=== PATIENT | female | born 1930 | race Caucasian/White ===

== ENCOUNTER 2016-09-23 18:05 | Observation (INO) | payer MEDICARE ==
[2016-09-23] VITALS (7 sets, daily range): BP systolic 134–154; BP diastolic 67–89; PULSE 68–88; RESP 18–20; TEMP 97.4–98.4; O2SAT 95–98
[~2016-09-23] VITALS: Ht 157.5 cm; Wt 81.2 kg
[~2016-09-23 18:05] MED LIST: ASPI1TAB91 PO; CARV3.125 PO; COUM5TAB PO; ENAL2.5T40 PO; LANO0.1212 PO; LEVO100T5 PO; OXYC1TAB63 PO; PANT40TA3 PO; ZOCO40TA PO
--- NOTE | 2016-09-23 18:25 | PD ---
HPI Chief Complaint: Edema Time Seen by Provider: 18:18 Travel History International Travel<30 days: No Contact w/Intl Traveler<30days: No Traveled to known affect area: No History of Present Illness HPI 86-year-old female with history of CAD, CABG, pacemaker, on Coumadin, here for evaluation of left leg swelling. The patient reports that she had some pain in her left thigh about 10 days ago and reports having an ultrasound of the lower extremity which was negative for DVT. Her last 2 days she has been having increasing swelling to the extremity. She denies history of DVT or PE. She denies pain in left lower extremity. No trauma. She did have venous harvesting from her bilateral lower extremities for her CABG 7 years ago. No other surgeries to the left lower extremity. PFSH Past Medical History Arthritis: Yes Cancer: Yes (COLON 1983) Cardiovascular Problems: Yes (CAD,CHF, PACEMAKER,CABG) High Cholesterol: Yes Chest Pain: No Congestive Heart Failure: Yes Cerebrovascular Accident: No Diabetes: Yes Endocrine: Yes Gastrointestinal Disorders: Yes (ULCERS,REFLUX) Glaucoma: No Genitourinary: No Hepatitis: No Hiatal Hernia: Yes Hypertension: Yes Immune Disorder: No Musculoskeletal: Yes (ARTHRITIS, LUMBAR PAIN) Neurologic: Yes (NEUROPATHY IN FEET, HANDS) Psychiatric: No Reproductive: No Respiratory: No Immunizations Current: Yes Migraines: No Seizures: No Thyroid Disease: Yes ?: Not Past Surgical History Abdominal Surgery: Yes (COLON RESECTION, CHOLY, APPY) AICD: Yes ([facility]) Body Medical Devices: STERNAL WIRES Cardiac Surgery: Yes (CABGX3 2007, PACEMAKER, ARRYTHMIA) Ear Surgery: No Endocrine Surgery: No Eye Surgery: No Genitourinary Surgery: No Gynecologic Surgery: Yes (TOTAL HYSTERECTOMY (IN 2 SURGERIES)) Joint Replacement: No Neurologic Surgery: No Oral Surgery: Yes (TONSILLECTOMY) Pacemaker: Yes Thoracic Surgery: Yes Other Surgery: Yes (hysterectomy, cholecystectomy, colon surgery) Social History Alcohol Use: No Tobacco Use: No Substance Use: No Allergies-Medications (Allergen,Severity, Reaction): Coded Allergies: Amiodarone (Verified Allergy, Intermediate, Rash, 09/23/16) Reported Meds & Prescriptions Reported Meds & Active Scripts Active Oxycodone-Acetaminophen 5-325 mg Tab 1 Tab PO Q4H PRN Reported Coumadin (Warfarin) 5 Mg Tab 5 Mg PO DAILY Zocor (Simvastatin) 40 Mg Tab 40 Mg PO HS Levothyroxine (Levothyroxine Sodium) 100 Mcg Tab 100 Mcg PO DAILY Vasotec (Enalapril Maleate) 2.5 Mg Tab 2.5 Mg PO DAILY Lanoxin (Digoxin) 0.125 Mg Tab 0.125 Mg PO DAILY Aspirin Adult Low Strength (Aspirin) 81 Mg Tabdr 81 Mg PO DAILY Pantoprazole (Pantoprazole Sodium) 40 Mg Tab 40 Mg PO DAILY Coreg (Carvedilol) 3.125 Mg Tab 3.125 Mg PO DAILY Review of Systems Except as stated in HPI: all other systems reviewed are Neg Physical Exam Narrative GENERAL: Well-developed, well-nourished, comfortable, no acute distress. SKIN: Warm and dry. No rash. No erythema. HEAD: Atraumatic. Normocephalic. EYES: Pupils equal and round. No scleral icterus. No injection or drainage. ENT: Mucous membranes pink and moist. NECK: Trachea midline. No JVD. CARDIOVASCULAR: Regular rate and rhythm. Bilateral dorsalis pedis pulses are brisk and equal. RESPIRATORY: No accessory muscle use. Clear to auscultation. Breath sounds equal bilaterally. GASTROINTESTINAL: Abdomen soft, non-tender, nondistended. 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 MUSCULOSKELETAL: No obvious deformities. No clubbing. No cyanosis. Significant left lower extremity edema from foot to thigh. No tenderness to left lower extremity. All compartments are supple in the left lower extremity. NEUROLOGICAL: Awake and alert. No obvious cranial nerve deficits. Motor grossly within normal limits. Normal speech. PSYCHIATRIC: Appropriate mood and affect; insight and judgment normal. Data Data Last Documented VS Vital Signs Date Time Temp Pulse Resp B/P Pulse Ox O2 Delivery O2 Flow Rate FiO2 09/23/16 18:30 95 09/23/16 18:15 98.4 71 20 134/67 Orders Complete Blood Count With Diff (09/23/16 18:23) Basic Metabolic Panel (Bmp) (09/23/16 18:23) B-Type Natriuretic Peptide (09/23/16 18:23) Act Partial Throm Time (Ptt) (09/23/16 18:23) Prothrombin Time / Inr (Pt) (09/23/16 18:23) Iv Access Insert/Monitor (09/23/16 18:23) Ecg Monitoring (09/23/16 18:23) Oximetry (09/23/16 18:23) Oxygen Administration (09/23/16 18:23) Chest, Single Ap (09/23/16 18:23) Sodium Chloride 0.9% Flush (Ns Flush) (09/23/16 18:30) Us Leg Venous Doppler (09/23/16 ) Enoxaparin Inj (Lovenox Inj) (09/23/16 20:00) Labs Laboratory Tests Test 09/23/16 18:30 White Blood Count 8.6 TH/MM3 Red Blood Count 4.40 MIL/MM3 Hemoglobin 11.9 GM/DL Hematocrit 36.7 % Mean Corpuscular Volume 83.4 FL Mean Corpuscular Hemoglobin 27.1 PG Mean Corpuscular Hemoglobin 32.5 % Concent Red Cell Distribution Width 14.7 % Platelet Count 256 TH/MM3 Mean Platelet Volume 6.9 FL Neutrophils (%) (Auto) 76.9 % Lymphocytes (%) (Auto) 8.5 % Monocytes (%) (Auto) 9.4 % Eosinophils (%) (Auto) 4.9 % Basophils (%) (Auto) 0.3 % Neutrophils # (Auto) 6.7 TH/MM3 Lymphocytes # (Auto) 0.7 TH/MM3 Monocytes # (Auto) 0.8 TH/MM3 Eosinophils # (Auto) 0.4 TH/MM3 Basophils # (Auto) 0.0 TH/MM3 CBC Comment DIFF FINAL Differential Comment Prothrombin Time 14.5 SEC Prothromb Time International 1.3 RATIO Ratio Activated Partial 31.4 SEC Thromboplast Time Sodium Level 136 MEQ/L Potassium Level 4.0 MEQ/L Chloride Level 98 MEQ/L Carbon Dioxide Level 27.2 MEQ/L Anion Gap 11 MEQ/L Blood Urea Nitrogen 18 MG/DL Creatinine 0.88 MG/DL Estimat Glomerular Filtration 61 ML/MIN Rate Random Glucose 120 MG/DL Calcium Level 9.7 MG/DL B-Type Natriuretic Peptide 427 PG/ML MDM Medical Decision Making Medical Screen Exam Complete: Yes Emergency Medical Condition: Yes Differential Diagnosis DVT, venous insufficiency, lymphedema, fluid overload Narrative Course Vital signs show heart rate 71, blood pressure 134/67, pulse ox 95% on room air , oral temp of 98.4F. CBC shows to be BC 8.6, hemoglobin 11.9, hematocrit 36.7, platelets 256, neutrophils 77%. BMP is unremarkable. BNP is 427. INR is 1.3. Chest x-ray: Cardiomegaly with previous CABG. Minimal right basilar density could be atelectasis or infiltrate. Left lower extremity ultrasound: Occlusive DVT of the left lower extremity. Patient was made aware of all findings. She is requesting something for her chronic pain which she states is diffuse. She takes oxycodone at home and tells me that hydrocodone will not work for her. I will give her some morphine. The patient is elderly and lives alone. She has significant left lower extremity edema when compared to the right. There are no signs of phlegmasia cerulea dolens or phlegmasia albicans. Bilateral dorsalis pedis pulses are palpable and brisk. She is having difficulty ambulating because of the significant size for left lower extremity and having difficulty bending her knee because of the edema. Because of this she'll be admitted for further treatment and evaluation and likely interventional radiology consultation for possible thrombolysis. Case discussed with [facility] hospitalist Dr. Ramirez who will admit the patient to her service. The patient will be started on Lovenox. Diagnosis Primary Impression: Deep vein thrombosis (DVT) of left lower extremity Qualified Code: I82.402 - Acute deep vein thrombosis (DVT) of left lower extremity, unspecified vein Admitting Information Admitting Physician Requests: Ag Fish MD Sep 23, 2016 18:25
[2016-09-23] MEDS ORDERED: SODIUM CHLORIDE 0.9% FLUSH 5 ML FLUSH IVF PRN (18:30)
[2016-09-23 18:42] LABS: AUTOMATED NEUTROPHIL # 6.7 TH/MM3 (1.8-7.7); BASOPHIL % 0.3 % (0.0-2.0); EOSINOPHIL # 0.4 TH/MM3 (0-0.4); EOSINOPHIL % 4.9 % (0.0-4.0); HEMATOCRIT 36.7 % (35.0-46.0); HEMO FLAGS DIFF FINAL; LYMPH % 8.5 % (9.0-44.0); LYMPHOCYTE # 0.7 TH/MM3 (1.0-4.8); MEAN CELL VOLUME 83.4 FL (80.0-100.0); MEAN CORPUSCULAR HEMOGLOBIN 27.1 PG (27.0-34.0); MEAN CORPUSCULAR HGB CONC 32.5 % (32.0-36.0); MONO % 9.4 % (0.0-8.0); NEUT % 76.9 % (16.0-70.0); PLATELET COUNT 256 TH/MM3 (150-450); RED CELL DISTRIBUTION WIDTH 14.7 % (11.6-17.2); WHITE BLOOD COUNT 8.6 TH/MM3 (4.0-11.0)
--- NOTE | 2016-09-23 18:44 | RADHPO ---
EXAM DATE/TIME: 09/23/2016 18:28 [facility] COMPARISON: CHEST PA & LAT, June 17, 2015, 11:55. INDICATIONS : Chest discomfort, swelling in lower extremities for 1 week MEDICAL HISTORY : None. SURGICAL HISTORY : Pacemaker. CABG. ENCOUNTER: Initial ACUITY: 1 week PAIN SCORE: 0/10 LOCATION: Bilateral chest FINDINGS: A single view of the chest demonstrates cardiomegaly with previous median sternotomy. Right basilar d ensity. Left-sided defibrillator with intact leads.. The cardiomediastinal contours are unremarkable . Osseous structures are intact. CONCLUSION: 1. Cardiomegaly with previous CABG. 2. Minimal right basilar density could be atelectasis or infiltrate. Eber Grant MD on September 23, 2016 at 18:42 Board Certified Radiologist. This report was verified electronically.
[2016-09-23 18:53] LABS: APTT (PATIENT) 31.4 SEC (24.3-30.1); BICARBONATE 27.2 MEQ/L (21.0-32.0); INTERNATIONAL NORMALIZED RATIO 1.3 RATIO; PROTHROMBIN TIME - PATIENT 14.5 SEC (9.8-11.6)
--- NOTE | 2016-09-23 19:25 | RADHPO ---
EXAM DATE/TIME: 09/23/2016 18:53 [facility] COMPARISON: No previous studies available for comparison. INDICATIONS : Left leg pain and swelling. MEDICAL HISTORY : Hypercholesterolemia. Gastroesophageal reflux disease. Hypertension. Hypothyroidism. CHF. Ulcer. H iatal hernia. Arthritis. SURGICAL HISTORY : Tonsillectomy. Appendectomy. Cholecystectomy. Colon resection. CABG. Pacemaker. Hysterectomy. ENCOUNTER: Initial ACUITY: 3 days PAIN SCORE: 5/10 LOCATION: Left leg. TECHNIQUE: Venous ultrasound of the leg was performed from the inguinal ligament to the proximal calf. Real-hugo e, color Doppler and spectral tracing, compression and augmentation techniques were used. FINDINGS: There is nonocclusive thrombus in the common femoral vein extending into the popliteal vein. Occlusiv e thrombus in the left peroneal and posterior tibial veins. CONCLUSION: 1. Occlusive thrombus in the left leg. Eber Grant MD on September 23, 2016 at 19:23 Board Certified Radiologist. This report was verified electronically.
[2016-09-23] MEDS ORDERED: ENOXAPARIN SODIUM 80 MG/0.8 ML SYRINGE SQ ONE (20:00)
[2016-09-23] MEDS ORDERED: WARFARIN SOD 10 MG TAB PO ONE (20:15)
[2016-09-23] MEDS ORDERED: MORPHINE SULFATE 4 MG/ML INJ IV PUSH ONE (20:15)
[2016-09-23] MEDS ORDERED: ONDANSETRON HCL 4 MG/2 ML VIAL IVP PRN (22:45)
[2016-09-23] MEDS ORDERED: ZOLPIDEM TARTRATE 5 MG TAB PO PRN (22:45)
[2016-09-23] MEDS ORDERED: NALOXONE HCL 0.4 MG/ML AMP IV PRN (22:45)
[2016-09-23] MEDS ORDERED: SODIUM CHLORIDE 0.9% FLUSH 5 ML FLUSH FLUSH PRN (22:45)
[2016-09-23] MEDS ORDERED: DO NOT ADM ANY ANTICOAGULANT DRUGS XX PRN (23:00)
[2016-09-24] MEDS: oxyCODONE/ACETAMINOPHEN 5 MG/325 MG TAB PO PRN ×3 (00:09→20:01)
[2016-09-24 03:30] VITALS: BP 140/68; PULSE 74; RESP 18; TEMP 98; O2SAT 98
[2016-09-24 06:15] LABS: AUTOMATED NEUTROPHIL # 4.1 TH/MM3 (1.8-7.7); BASOPHIL % 0.6 % (0.0-2.0); EOSINOPHIL # 0.5 TH/MM3 (0-0.4); EOSINOPHIL % 7.8 % (0.0-4.0); HEMATOCRIT 31.6 % (35.0-46.0); HEMO FLAGS DIFF FINAL; LYMPH % 12.3 % (9.0-44.0); LYMPHOCYTE # 0.7 TH/MM3 (1.0-4.8); MEAN CELL VOLUME 83.2 FL (80.0-100.0); MEAN CORPUSCULAR HEMOGLOBIN 26.3 PG (27.0-34.0); MEAN CORPUSCULAR HGB CONC 31.6 % (32.0-36.0); MONO % 12.2 % (0.0-8.0); NEUT % 67.1 % (16.0-70.0); PLATELET COUNT 222 TH/MM3 (150-450); RED CELL DISTRIBUTION WIDTH 15.1 % (11.6-17.2)
[2016-09-24] MEDS: LEVOTHYROXINE SODIUM 100 MCG TAB PO SCH (06:22)
[2016-09-24 06:24] LABS: CHLORIDE 103 MEQ/L (98-107); POTASSIUM 3.7 MEQ/L (3.5-5.1); SODIUM (NA) 138 MEQ/L (136-145)
[2016-09-24 06:27] LABS: INTERNATIONAL NORMALIZED RATIO 1.4 RATIO; PROTHROMBIN TIME - PATIENT 15.9 SEC (9.8-11.6)
[2016-09-24 06:33] LABS: ALT (GPT) 10 U/L (10-53); ANION GAP 8 MEQ/L (5-15); AST (GOT) 8 U/L (15-37); BICARBONATE 27.5 MEQ/L (21.0-32.0); BLOOD UREA NITROGEN 16 MG/DL (7-18); GLOMERULAR FILTRATION RATE 72 ML/MIN (>89); TOTAL BILIRUBIN ADULT 0.4 MG/DL (0.2-1.0)
[2016-09-24 06:42] LABS: ALKALINE PHOSPHATASE 76 U/L (45-117)
[2016-09-24 07:00] VITALS: BP 150/70; PULSE 78; RESP 16; TEMP 98; O2SAT 96
[2016-09-24] MEDS: ENALAPRIL MALEATE 2.5 MG TAB PO SCH (09:00)
[2016-09-24 09:29] VITALS: BP 162/84; PULSE 69; RESP 18; TEMP 97.4; O2SAT 96
[2016-09-24] MEDS: SODIUM CHLORIDE 0.9% FLUSH 5 ML FLUSH FLUSH SCH ×2 (10:20→21:54)
[2016-09-24] MEDS: CARVEDILOL 3.125 MG TAB PO SCH (10:20)
[2016-09-24] MEDS: DIGOXIN 0.125 MG TAB PO SCH (10:20)
[2016-09-24] MEDS: ASPIRIN EC 81 MG TABEC PO SCH (10:20)
[2016-09-24] MEDS: PANTOPRAZOLE SOD 40 MG DELAYED RELEASE TAB PO SCH (10:21)
[2016-09-24 12:00] VITALS: BP 148/80; PULSE 69; RESP 18; TEMP 97.5; O2SAT 97
--- NOTE | 2016-09-24 12:47 | MH ---
cc: LULU HARLEY DATE OF ADMISSION: 09/23/2016 ADMISSION DIAGNOSIS Left lower extremity DVT. HISTORY OF PRESENT ILLNESS The patient is a very pleasant 86-year-old female who presented to the emergency room with increased swelling in the left lower extremity. She states that she had been in her usual state of health until earlier in the week when she noticed some swelling and discomfort on her left thigh. She went to her primary care physician and she said she had that imaged and at that time she was told that the study was negative. However, on the day that she presented to the emergency room she noticed that over the period of only a couple of hours her left lower extremity had started to swell. She denied any pain with this or difficulty with ambulation. She was just concerned about the swelling so she presented to the emergency room. She is currently on Coumadin for atrial fibrillation. She does say that her last INR was 2.2, however, when she got that reading she understood she was to cut her Coumadin dosage in half and she was taking half of a 5 mg pill at the time. She states she has had no trauma. The last time she fell was several months ago. She has had no chest pain or shortness of breath associated with this. She states that she has been in her usual level of activity. She uses a walker to ambulate and she says she has been ambulating as normal for her. She does have a history of rectal cancer for which she had surgery in 2014. They did try treating it with radiation but she was intolerant of this and actually stopped her treatment. She really has no other complaints right now except for some left lower quadrant pain which she says she has had for several months. It is around her colostomy site. She does take narcotics for this. PAST MEDICAL HISTORY Past medical history is significant for: 1. As stated, the rectal cancer status post surgery and radiation. 2. Coronary artery disease. 3. She has been told she is diabetic but she just follows a regular diet. 4. She has a history of hypertension. 5. Hyperlipidemia. 6. Hypothyroidism. PAST SURGICAL HISTORY Surgical history includes: 1. CABG. 2. Biventricular pacemaker. 3. Appendectomy. 4. Cholecystectomy. 5. She had a partial colectomy. 6. Hysterectomy with oophorectomy. 7. She did have a proctosigmoidectomy with a Yanet pouch and then colostomy with an omental flap in 2014, this was performed by Dr. Fairbanks, at that time she also had stent placement by Dr. Chris. ALLERGIES She is allergic to AMIODARONE. MEDICATIONS Medications include: 1. Coumadin 5 mg, apparently she was actually taking half a dose for the last several days. 2. Enalapril 2.5 mg. 3. Coreg 3.125. 4. Digoxin 0.125. 5. Simvastatin 40 mg. 6. Baby aspirin. 7. She takes Oxycodone 5/325 as needed q.4 hours for her lower abdominal pain. 8. She takes Protonix 40 mg daily. 9. Levothyroxine 100 mcg daily. HABITS She does not consume alcohol. She does not smoke. SOCIAL HISTORY She is retired. 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 She currently lives alone and has no family. She has cats to keep her company. She uses a walker to ambulate. She tells me she has been able to perform activities of daily living and has been able to ambulate and ambulated into the hospital on the day of admission. FAMILY HISTORY Noncontributory. REVIEW OF SYSTEMS She denies any significant weight changes. She says she does not eat much but she has been told that is normal for her for her age. As stated she denies any chest pain or pressure. No palpitations. She does have that left lower quadrant abdominal pain that she has had for several months now and is felt to be this is correlative of her rectal cancer. She says the output from her colostomy bag is black, she has not actually seen any blood. She says she is urinating well and she feels that her urine is clear at this point. She has chronic right knee problems. She is bone on bone. She has been seen by orthopedics for that. Apparently that is not as much as a problem for ambulation at the present time as it has been in the past. PHYSICAL EXAMINATION VITAL SIGNS: On physical exam, temperature is 97.4, pulse is 69, respirations 18, blood pressure is 162/84, pulse ox on room air is 96%. GENERAL: She is alert and oriented, in no acute distress. She is very pleasant, lying in bed. HEENT: She is normocephalic, atraumatic. EOM is intact. She has a moist oral mucosa. She has her own dentition. NECK: Her neck is supple. She has no bruits. LUNGS: Her lungs were clear to auscultation with no rhonchi, rales or wheezes. CARDIAC: Her heart is regular. I hear no ectopy or murmur. Her pacemaker is on the left anterior chest wall. ABDOMEN: Globose. She has got good bowel sounds. She does have a colostomy bag in the left lower quadrant with some brown stool. EXTREMITIES: Her legs actually look like at baseline. They are fairly thick, both her right and her left, however, her left it does have a larger circumference than her right, it is nontender. She really does not have a Homans' sign. It is not hot. She does have a little bit of erythema in the left ankle but she says that is chronic. She has got good pulses. LABORATORY DATA Lab work when she presented showed a white count of 8.6, hemoglobin of 11.9, hematocrit of 36.7, platelet count of 256. Sodium of 136, potassium of 4, BUN of 18, creatinine 0.88. Her GFR was 61, random glucose was 120. BNP was ordered 11/12, not clear why. Her INR was 1.3. IMAGING STUDIES Chest x-ray was significant for left-sided defibrillator with intact leads, minimal right basilar density, could be atelectasis or infiltrate. On venous Doppler there is a nonocclusive thrombus in the common femoral vein extending into the popliteal vein and occlusive thrombus in the left peroneal and posterior tibial veins. ASSESSMENT/PLAN 86-year-old female presenting to the emergency room with left lower extremity DVT with subtherapeutic INR. At this point the patient was admitted to monitor her. We have started her on Lovenox and will continue with the Coumadin. I did discuss thrombolytics with her but I think at this point we are going to manage her more conservatively. I will have physical therapy evaluate her and make sure she is able to ambulate safely. In terms of her coronary artery disease and atrial fibrillation we will continue on her home medications, again including her Coumadin, for her partially treated rectal cancer, will continue on her pain medications, this certainly is a risk factor for her DVT. Continue the rest of her home medications. I did discuss with her code status and the patient tells me that at this point she is a do not resuscitate. Further recommendations as the case develops. MD JEAN-PAUL Pierre/SUMAN /11:46 AM /12:07 PM
[2016-09-24] MEDS: ENOXAPARIN SODIUM 80 MG/0.8 ML SYRINGE SQ SCH ×2 (13:05→21:54)
[2016-09-24 16:00] VITALS: BP 134/71; PULSE 69; RESP 18; TEMP 96.4; O2SAT 96
[2016-09-24] MEDS ORDERED: WARFARIN SOD 7.5 MG TAB PO SCH (16:00)
[2016-09-24] MEDS ORDERED: WARFARIN SOD 5 MG TAB PO SCH (16:00)
[2016-09-24 20:00] VITALS: BP 150/79; PULSE 69; RESP 20; TEMP 98.4; O2SAT 97
[2016-09-24] MEDS ORDERED: PRAVASTATIN SOD 80 MG TAB PO SCH (21:00)
[2016-09-24] MEDS ORDERED: MORPHINE SULFATE 4 MG/ML INJ IV ONE (22:00)
[2016-09-25] VITALS: BP 137/72; PULSE 70; RESP 20; TEMP 98.1; O2SAT 97
[2016-09-25] MEDS: LEVOTHYROXINE SODIUM 100 MCG TAB PO SCH (06:09)
[2016-09-25] MEDS: oxyCODONE/ACETAMINOPHEN 5 MG/325 MG TAB PO PRN (06:09)
[2016-09-25 06:47] LABS: INTERNATIONAL NORMALIZED RATIO 2.2 RATIO; PROTHROMBIN TIME - PATIENT 24.9 SEC (9.8-11.6)
[2016-09-25 08:00] VITALS: BP 141/75; PULSE 67; RESP 16; TEMP 97.8; O2SAT 97
[2016-09-25] MEDS: PANTOPRAZOLE SOD 40 MG DELAYED RELEASE TAB PO SCH (09:00)
[2016-09-25] MEDS: ENALAPRIL MALEATE 2.5 MG TAB PO SCH (09:00)
[2016-09-25] MEDS: ASPIRIN EC 81 MG TABEC PO SCH (09:00)
[2016-09-25] MEDS: CARVEDILOL 3.125 MG TAB PO SCH (09:00)
[2016-09-25] MEDS: DIGOXIN 0.125 MG TAB PO SCH (09:00)
[2016-09-25] MEDS: SODIUM CHLORIDE 0.9% FLUSH 5 ML FLUSH FLUSH SCH (09:00)
[2016-09-25] MEDS ORDERED: PNEUMOCOCCAL POLYVALENT INJ 25 MCG/0.5 ML SYR IM ONE (10:00)
[2016-09-25] MEDS ORDERED: INFLUENZA VIRUS VACCINE (QUADRIVALENT) 0.5 ML SYR IM ONE (10:00)
--- NOTE | 2016-09-25 10:47 | HHI.PR ---
Subjective Remarks Ambulating, no leg pain, no chest pain or sob. Had lower abdominal pain last night. States this is an intermittent problem and has morphine at home. States her pcp has tried to get her to get on pain regimen as she has decided not to treat her cancer. She has been offered hospice but has declined as she feels that so far she is doing "ok". Objective Vitals Vital Signs Date Time Temp Pulse Resp B/P Pulse Ox O2 Delivery O2 Flow Rate FiO2 09/25/16 08:00 97.8 67 16 141/75 97 09/25/16 00:00 98.1 70 20 137/72 97 09/24/16 23:52 18 09/24/16 21:30 18 09/24/16 20:00 98.4 69 20 150/79 97 09/24/16 16:00 96.4 69 18 134/71 96 09/24/16 12:00 97.5 69 18 148/80 97 09/24/16 09/24/16 09/25/16 15:00 23:00 07:00 Intake Total 440 ml 240 ml 240 ml Balance 440 ml 240 ml 240 ml Intake Oral 440 ml 240 ml 240 ml # Voids 1 2 4 # Bowel Movements 0 0 0 Result Diagram: 09/24/16 0600 09/24/16 0600 Imaging Last Impressions Chest X-Ray 09/23/16 1823 Signed Impressions: Service Date/Time: Friday, September 23, 2016 18:28 - CONCLUSION: 1. Cardiomegaly with previous CABG. 2. Minimal right basilar density could be atelectasis or infiltrate. Eber Grant MD Lower Extremity Ultrasound 09/23/16 0000 Signed Impressions: Service Date/Time: Friday, September 23, 2016 18:53 - CONCLUSION: 1. Occlusive thrombus in the left leg. Eber Grant MD Objective Remarks Lying in bed, looks comfortable lungs cta heart rrr soft chucky 2/6 + bs colostomy bag llq with output, left lower extremity larger then right , slightly firm, no calf tenderness, good pulses A/P Problem List: (1) Deep vein thrombosis (DVT) of left lower extremity Status: Acute Plan: extensive DVT she is pain free and amulation, anticoagulated on lovenox and coumadin will stop lovenox cont coumadin (2) Atrial fibrillation Status: Chronic Plan: on coumadin , digoxin, she has been therapeutic on coumadin 5 mg but decreased her dose by half earlier this week when her inr was 2.2 (3) Rectal cancer Status: Chronic Plan: She has chosen not to pursue treatment. Discussed with her that it is not unreasonable to use the pain medications she has been prescribed to keep herself comfortable. Problem Qualifiers (1) Deep vein thrombosis (DVT) of left lower extremity: Qualified Code: I82.402 - Acute deep vein thrombosis (DVT) of left lower extremity, unspecified vein Yamini Ramirez MD Sep 25, 2016 10:47
[2016-09-25] MEDS ORDERED: ENOX80P SQ (10:54)
--- NOTE | 2016-09-25 11:02 | HHI.FF ---
Face to Face Verification Diagnosis: (1) Deep vein thrombosis (DVT) of left lower extremity (2) Atrial fibrillation (3) Rectal cancer Home Health Nursing Order: Signs/symptoms of disease process Nursing assessment with vital signs I have seen patient Angelina Peter on 09/25/16. My clinical findings support the need for the requested home health care services because: Ltd mobility - disease progression Injectable med education/admin I certify that my clinical findings support that this patient is homebound because: Unsteady gait/balance Pt needs PT/INR 09/26 and 09/27 to prevent potentially lifethreatening DVT call pcp for INR greater then or equal to 3 or less then or equal to 2 Yamini Ramirez MD Sep 25, 2016 11:02
== END 2016-09-25 12:00 | disposition home or self-care (01) ==
LOC: PHED 18:05 → PHEDA 20:05 → PHEDH 09-24 00:05 → PH3B 09-24 09:27
PROVIDERS: ADMIT Legal Medicine; ATTEND Legal Medicine
DX: I82.402 Acute embolism and thrombosis of unspecified deep veins of left lower extremity (principal); I48.91 Unspecified atrial fibrillation; C20 Malignant neoplasm of rectum; I25.10 Atherosclerotic heart disease of native coronary artery without angina pectoris; M19.90 Unspecified osteoarthritis, unspecified site; I11.0 Hypertensive heart disease with heart failure; E78.5 Hyperlipidemia, unspecified; E03.9 Hypothyroidism, unspecified; E78.00 Pure hypercholesterolemia, unspecified; K21.9 Gastro-esophageal reflux disease without esophagitis; E11.40 Type 2 diabetes mellitus with diabetic neuropathy, unspecified; Z95.1 Presence of aortocoronary bypass graft; Z95.0 Presence of cardiac pacemaker; Z90.49 Acquired absence of other specified parts of digestive tract; Z90.710 Acquired absence of both cervix and uterus; Z88.8 Allergy status to other drugs, medicaments and biological substances; Z79.82 Long term (current) use of aspirin; Z92.3 Personal history of irradiation; Z79.01 Long term (current) use of anticoagulants; Z85.038 Personal history of other malignant neoplasm of large intestine
CPT/HCPCS: 71010; 80048; 80053; 83880; 85025; 85610; 85730; 93971; G0378; G8987-GP; G8988-GP; J1650; J2270